=== PATIENT | male | born 1945 | race Caucasian/White ===

== ENCOUNTER → 2016-12-06 | Day surgery (SDC) | payer MEDICARE, BC ==
[~2016-12-06] MED LIST: ARMOUR THYROID30 MG PO; ASPIRIN81 M1 PO; CRESTOR PO; CRESTOR10 MG PO; FISH OIL 1,2001 CAP PO; FLONASE 0.05% N16 G1; LEVOXYL75 MCG PO; LOSARTAN POTASS50 MG PO; MELOXICAM7.5 MG PO; MULTI-DAY PLUS1 EACH PO; PERCOCET 10/6501 TA1 PO; PROBIOTIC1 EAC1 PO; TAGAMET PO; TIROSINT100 MCG PO; TRICOR145 MG PO; WP THYROID16.25 MG PO; [UNRECOGNIZED DRUG - OTHER]
--- NOTE | ~2016-12-06 | OR ---
Unit #: [id number] #: [id number] Patient: BELLA VASQUEZ [id number] [address] [place], [place] [address] [id number] O MR#: [id number] NAME: BELLA VASQUEZ ROOM: Date of Procedure: 12/06/2016 Admission Date: 12/06/2016 Surgeon: Niles Poole III, M.D. : 1945 Attending Physician: Niles Poole III, M.D. Primary Care Physician: Eb Hodgson M.D. OPERATIVE REPORT PREOPERATIVE DIAGNOSIS Heme-positive stools with anemia. POSTOPERATIVE DIAGNOSES Esophageal mass at 38 cm, gastritis, and swenson-diverticulosis. PROCEDURES PERFORMED Esophagogastroduodenoscopy with biopsy and colonoscopy to cecum. ANESTHESIA MAC. SPECIMENS Antrum was sent for SIMEON and for path and distal esophagus at 38 cm was biopsied multiple times. COMPLICATIONS None apparent. INDICATIONS FOR PROCEDURE This is a 71-year-old gentleman, who was noted to have anemia and heme-positive stools. He has a history of precancerous colon polyp and is here today for upper and lower endoscopy. He has never undergone upper endoscopy in the past. DESCRIPTION OF PROCEDURE After consent was obtained, the patient was brought to the endoscopy suite and placed in the left lateral decubitus position. We titrated the above sedation and I passed an EGD scope easily into the esophagus under direct visualization. He had normal peristalsis. No evidence of any erosions, but at 38 cm at the GE junction, he had about a 2 to 3 cm segment of a mass that appeared to go approximately 75% around the circumference of the esophagus. It had a friable nature to it and certainly did not appear to be benign. Multiple biopsies of this area were taken. I then advanced the scope on into the stomach. There was no hiatal hernia seen. He did have some gastritis near the antrum with some tiny ulcers. [employer] biopsies of that were taken for both path and SIMEON. The pylorus was patent and the first and second portions of the duodenum appeared normal. I then retroflexed the scope within the cardia and again I did not see hiatal hernia. Again, the area at 38 cm appeared abnormal and photos were obtained. The scope was then straightened and carefully withdrawn. I then performed a rectal exam. I did not feel any masses. The scope was Unit #: [id number] #: [id number] Patient: BELLA VASQUEZ placed within the rectal vault. Air was insufflated. I navigated the scope through his old anastomosis all the way to the cecum. His anastomosis was around 12 cm from the rectum. Also, the rectal pouch appeared normal. He did have some scattered diverticulosis that was moderate in severity mostly on the left colon, but it did extend over to the right side as well. There were no other polyps or mucosal irregularities seen. The scope was retroflexed within the rectum. No other masses were seen. The scope was then carefully withdrawn. The patient tolerated the procedure without any problems and I will have him call our office next week for biopsy results. Dictated by... Niles Poole III, M.D. VCL/malika TD: 12/06/2016 13:10 JOB #: [id number] OPERATIVE REPORT Page 1 of 1 X Niles Poole III, MD PROCEDURE OPERATIVE NOTE
== END | disposition home or self-care (01) ==
LOC: COPS 09:30
DX: K22.8 Other specified diseases of esophagus (principal); K29.50 Unspecified chronic gastritis without bleeding; K57.30 Diverticulosis of large intestine without perforation or abscess without bleeding; R19.5 Other fecal abnormalities; D64.9 Anemia, unspecified; Z85.038 Personal history of other malignant neoplasm of large intestine; E03.9 Hypothyroidism, unspecified; I25.10 Atherosclerotic heart disease of native coronary artery without angina pectoris; Z95.5 Presence of coronary angioplasty implant and graft; Z90.49 Acquired absence of other specified parts of digestive tract
CPT/HCPCS: 87077; 88305; 88312; J2250